=== PATIENT | male | born 1985 | race Caucasian/White ===

== ENCOUNTER 2020-12-10 15:54 | Emergency (ER) | payer OTHER | END 2020-12-10 17:23 | disposition left against medical advice (07) | LOC: ER 15:54 | DX: Z02.9 Encounter for administrative examinations, unspecified (principal) ==

== ENCOUNTER 2021-05-31 15:35 | Emergency (ER) | payer OTHER ==
[2021-05-31] MEDS ORDERED: LORAZEPAM 0.5 MG TABLET ONE (16:10)
--- NOTE | 2021-05-31 16:16 | RAD REPORT ---
EXAM DESCRIPTION: CT - Head Brain Wo Cont - 05/31/2021 4:01 pm CLINICAL HISTORY: Headache COMPARISON: None TECHNIQUE: Computed axial tomography of the head was obtained. IV contrast was not requested. All CT scans are performed using dose optimization technique as appropriate and may include automated exposure control or mA/KV adjustment according to patient size. FINDINGS: An intracranial bleed is not seen . The ventricles are normal in caliber. No extra-axial fluid collection is noted. . Fluid within the sinuses/ mastoids is not seen. IMPRESSION: No acute intracranial abnormality is seen. If patient's symptoms persist MRI of the bra in would be recommended.
--- NOTE | 2021-05-31 16:27 | EDPHYS ---
Physician Documentation [facility] Name: Destin Damon Age: 35 yrs Sex: Male : 1985 Arrival Date: 05/31/2021 Time: 15:36 Bed 17 Private MD: ED Physician Logan Molina HPI: 05/31 16:25 This 35 yrs old Male presents to ER via EMS with complaints of Anxiety, Fall Injury. kb 16:25 The patient or guardian reports pain. The complaints affect the right occipital area. kb Context of injury: The problem was sustained at "[employer]", resulted from a fall, from a standing position. Onset: The symptoms/episode began/occurred at 14:30. Associated signs and symptoms: Loss of consciousness: This patient did not experience any loss of consciousness. Pertinent positives: headache. Severity of symptoms: At their worst the symptoms were moderate, in the emergency department the symptoms are unchanged. The patient has not experienced similar symptoms in the past. The patient has not recently seen a physician. 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 States he fell the wrong way and hit his head on the wall. Denies LOC. States he worked for another hour or so and then started feeling weird. Pt now very anxious. . Historical: - Allergies: 16:16 Sulfa (Sulfonamide Antibiotics); ll1 - Immunization history:: Adult Immunizations up to date, Last tetanus immunization: up to date. - Social history:: Smoking status: unknown. ROS: 16:24 Constitutional: Negative for fever, chills, and weight loss. kb 16:24 Neuro: Positive for headache. 16:24 Psych: Positive for anxiety. 16:24 All other systems are negative. Exam: 16:24 Head/Face: Normocephalic, atraumatic. ENT: Moist Mucous membranes Cardiovascular: kb Regular rate and rhythm with a normal S1 and S2. No gallops, murmurs, or rubs. No pulse deficits. Respiratory: Respirations even and unlabored. No increased work of breathing. Talking in full sentences MS/ Extremity: Pulses equal, no cyanosis. Neurovascular intact. Full, normal range of motion. Neuro: Awake and alert, GCS 15, oriented to person, place, time, and situation. Moves all extremities. Normal gait. 16:24 Constitutional: The patient appears alert, awake, anxious. 16:24 Head/face: Noted is no obvious of injury or deformity except hematoma, that is mild, of the right occipital area. 16:24 Skin: hematoma to back of head. 16:24 Psych: Behavior/mood is pleasant, cooperative, anxious, Affect is animated, Oriented to person, place, time, Patient has no thoughts/intents to harm self or others. Vital Signs: 15:39 BP 113 / 69; Pulse 103; Resp 18 S; Pulse Ox 100% on R/A; iw 16:15 Temp 98.0; ll1 17:04 BP 127 / 89; Pulse 88; Resp 17; Pulse Ox 99% on R/A; Pain 3/10; ll1 [place] Coma Score: 16:25 Eye Response: spontaneous(4). Verbal Response: oriented(5). Motor Response: obeys kb commands(6). Total: 15. MDM: 15:38 Patient medically screened. maia 16:23 Data reviewed: vital signs, nurses notes. Data interpreted: Pulse oximetry: on room air kb is 100 %. Interpretation: normal. Counseling: I had a detailed discussion with the patient and/or guardian regarding: the historical points, exam findings, and any diagnostic results supporting the discharge/admit diagnosis, radiology results, the need for outpatient follow up, a family practitioner, to return to the emergency department if symptoms worsen or persist or if there are any questions or concerns that arise at home. 05/31 15:49 Order name: CT Head Brain wo Cont; Complete Time: 16:18 kb Administered Medications: 16:15 Drug: Ativan (LORazepam) 0.5 mg Route: PO; ll1 17:08 Follow up: Response: No adverse reaction; Anxiety decreased; RASS: Alert and Calm (0) ll1 Disposition Summary: 05/31/21 16:27 Discharge Ordered Location: Home kb Condition: Stable kb Diagnosis - Unspecified injury of head, initial encounter kb Followup: kb - With: Emergency Department - When: As needed - Reason: Worsening of condition Followup: kb - With: Private Physician - When: 2 - 3 days - Reason: Recheck today's complaints, Continuance of care, Re-evaluation by your physician Discharge Instructions: - Discharge Summary Sheet kb - Head Injury, Adult, [id number] kb Forms: - Medication Reconciliation Form kb - Thank You Letter kb - Antibiotic Education kb - Prescription Opioid Use kb Signatures: Dispatcher [employer] EDAda Pichardo, PROJECT CONTROL OFFICER-C PROJECT CONTROL OFFICER-Logan Izquierdo MD MD cha Lewis, Lynsay RN RN ll1
--- NOTE | 2021-05-31 16:27 | ER ---
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 15:38 Acuity: DELROY 3 iw 15:38 Method Of Arrival: EMS: [facility] iw 16:17 Coronavirus screen: Client denies travel out of the [place] in the last 14 days. At this ll1 time, the client does not indicate any symptoms associated with coronavirus-19. Ebola Screen: Patient denies travel to an Ebola-affected area in the 21 days before illness onset. Initial Sepsis Screen: Does the patient meet any 2 criteria? No. Patient's initial sepsis screen is negative. Does the patient have a suspected source of infection? No. Patient's initial sepsis screen is negative. Risk Assessment: Do you want to hurt yourself or someone else? Patient reports no desire to harm self or others. Onset of symptoms was May 31, 2021. Historical: - Allergies: 16:16 Sulfa (Sulfonamide Antibiotics); ll1 - Immunization history:: Adult Immunizations up to date, Last tetanus immunization: up to date. - Social history:: Smoking status: unknown. Screenin:16 Abuse screen: Denies threats or abuse. Nutritional screening: No deficits noted. ll1 Tuberculosis screening: No symptoms or risk factors identified. Fall Risk Fall in past 12 months (25 points). Gait- Impaired (20 pts.). Total Hamilton Fall Scale indicates High Risk Score (45 or more points). Fall prevention measures have been instituted. Side Rails Up X 2 Frequent Obs/Assessments Occuring As available patient and family educated on Fall Prevention Program and Strategies. Assessment: 16:15 General: Appears distressed, uncomfortable, Behavior is cooperative, appropriate for ll1 age, anxious. Pain: Complains of pain in right occipital area Quality of pain is described as aching, Aggravated by increased activity. Neuro: Level of Consciousness is awake, alert, obeys commands, Oriented to person, place, time, situation, Appropriate for age Rope Twisting Machine Operator are equal bilaterally Moves all extremities. Full function Gait is steady, Speech is normal, Facial symmetry appears normal, Pupils are PERRLA, Reports headache. Cardiovascular: No deficits noted. Respiratory: No deficits noted. 17:05 Reassessment: Patient appears in no apparent distress at this time. No changes from ll1 previously documented assessment. Patient and/or family updated on plan of care and expected duration. Pain level reassessed. Patient is alert, oriented x 3, equal unlabored respirations, skin warm/dry/pink. Patient states feeling better. Vital Signs: 15:39 BP 113 / 69; Pulse 103; Resp 18 S; Pulse Ox 100% on R/A; iw 16:15 Temp 98.0; ll1 17:04 BP 127 / 89; Pulse 88; Resp 17; Pulse Ox 99% on R/A; Pain 3/10; ll1 [place] Coma Score: 16:25 Eye Response: spontaneous(4). Verbal Response: oriented(5). Motor Response: obeys kb commands(6). Total: 15. ED Course: 15:36 Patient arrived in ED. ll1 15:37 Ada Collado [facility]NP-C [facility] kb 15:37 Logan Molina MD is Attending Physician. kb 15:39 Triage completed. iw 16:01 CT Head Brain wo Cont In Process Unspecified. EDMS 16:05 Keerthi Davidson, RN is Primary Nurse. iw 16:08 Valarie Mejía, HANNAH is Primary Nurse. ll1 16:16 Patient has correct armband on for positive identification. Bed in low position. Call ll1 light in reach. Side rails up X 1. resist coater developer on. Pulse ox on. NIBP on. 17:06 No provider procedures requiring assistance completed. Patient did not have IV access ll1 during this emergency room visit. 17:07 Arm band placed on. ll1 Administered Medications: 16:15 Drug: Ativan (LORazepam) 0.5 mg Route: PO; ll1 17:08 Follow up: Response: No adverse reaction; Anxiety decreased; RASS: Alert and Calm (0) ll1 Outcome: 16:27 Discharge ordered by . kb 17:07 Discharged to home ambulatory. ll1 17:07 Condition: stable 17:07 Discharge instructions given to patient, family, Instructed on discharge instructions, follow up and referral plans. Demonstrated understanding of instructions, follow-up care. 17:07 Patient left the ED. ll1 Signatures: Dispatcher [employer] Ada Reinoso FNP-C FNP-Keerthi Crocker RN RN iw Valarie Mejía RN RN ll1
[2021-05-31 18:42] VITALS: TEMP 98
[2021-05-31 18:44] VITALS: BP 127/89; O2SAT 99
== END 2021-05-31 17:07 | disposition home or self-care (01) ==
LOC: ER 15:35
DX: S09.90XA Unspecified injury of head, initial encounter (principal); W18.39XA Other fall on same level, initial encounter; Z88.2 Allergy status to sulfonamides
CPT/HCPCS: 70450; 99284